=== PATIENT | male | born 1995 | race Hispanic/Latino ===

== ENCOUNTER 2022-11-09 01:05 | Emergency (ER) | payer SELFPAY ==
[2022-11-09] MEDS ORDERED: Lidocaine 1% w/Epinephrine 1:100K 20 ML VIAL ONE (01:29)
[2022-11-09] MEDS ORDERED: Boostrix 0.5 ML (Tdap) VIAL (>/=7 yrs of age) ONE (01:52)
[2022-11-09] MEDS ORDERED: Haloperidol Lactate 5 MG/ML VIAL ONE (02:30)
[2022-11-09] MEDS ORDERED: Lorazepam 2 MG/ML VIAL ONE ×2 (02:30→03:39)
== END 2022-11-09 07:47 | disposition home or self-care (01) ==
LOC: MADERS 01:05
DX: S01.01XA Laceration without foreign body of scalp, initial encounter (principal); F10.129 Alcohol abuse with intoxication, unspecified; W26.8XXA Contact with other sharp object(s), not elsewhere classified, initial encounter; Z23 Encounter for immunization
CPT/HCPCS: 12002; 70450; 90471; 90715; 96372; J1630; J2060